=== PATIENT | male | born 1995 | race Caucasian/White ===

== ENCOUNTER 2023-10-24 13:02 | Emergency (ER) | payer SELFPAY ==
[~2023-10-24] VITALS: Ht 195.6 cm; Wt 102.1 kg
[2023-10-24 13:02] VITALS: BP_SYST 125; PULSE 103; RESP 18; TEMP 98.7; O2SAT 100
[2023-10-24 13:11] VITALS: BP_SYST 125; PULSE 103; RESP 18; TEMP 98.7; O2SAT 100
[2023-10-24] MEDS ORDERED: PERM60CR18 TP (13:16)
== END 2023-10-24 13:11 ==
LOC: SED 13:02
DX: B86 Scabies (principal)
CPT/HCPCS: 99283